=== PATIENT | female | born 1955 | race Caucasian/White ===

== ENCOUNTER 2017-01-14 02:50 | Inpatient (IN) ==
[2017-01-07 12:53] LABS: MANUAL DIFF NEEDED? NO; URINE MICRO REVIEW NEEDED? NO; URINE SOURCE CLEAN CATCH
--- NOTE | 2017-01-07 12:54 | EKG Report ---
Test Performed on : 01/07/2017 12:26:11 PM Test Reason : PAT Blood Pressure : / mmHG Vent. Rate : 078 BPM Atrial Rate : 078 BPM P-R Int : 208 ms QRS Dur : 080 ms QT Int : 372 ms P-R-T Axes : 064 105 057 degrees QTc Int : 424 ms Normal sinus rhythm. with 1st degree AV block. Rightward axis Borderline ECG When compared with ECG of 21-MAR-2010 08:36, No significant change was found Confirmed by Jonathan Roman MD ([id number]) on 01/07/2017 3:58:44 PM
[2017-01-07 13:06] LABS: BILIRUBIN URINE NEGATIVE (NEGATIVE); BLOOD URINE NEGATIVE (NEGATIVE); COLOR YELLOW; GLUCOSE URINE NEGATIVE (NEGATIVE); LEUKOCYTES URINE MODERATE (NEGATIVE); NITRITE URINE NEGATIVE (NEGATIVE); PH URINE 5.5; PROTEIN URINE NEGATIVE (NEGATIVE); SP GRAVITY URINE 1.009; TURBIDITY URINE CLEAR (CLEAR); UROBILINOGEN URINE NORMAL (NORMAL)
[2017-01-07 13:07] LABS: UR EPITHELIAL CELLS <10 /HPF (<10); URINE BACTERIA NEGATIVE /HPF; URINE RBC <10 /HPF (<10)
[2017-01-07 13:17] LABS: BASO% 0.3 % (0.0-0.8); EOS# 0.13 X1000 (0.0-0.7); EOS% 1.9 % (0.0-10.0); HEMATOCRIT 41.4 % (37.0-47.0); HEMOGLOBIN 13.6 g/dL (12.0-16.0); IMM GRAN# 0.02 X1000 (0.0-0.04); IMM GRAN% 0.3 % (0.0-0.5); LYMPH# 1.47 X1000 (1.2-3.4); LYMPH% 21.4 % (20.5-51.1); MCHC 32.9 g/dL (33-37); MCV 97.4 FL (81-99); MONO# 0.45 X1000 (0.11-0.59); MONO% 6.5 % (1.7-9.3); NEUT% 69.6 % (42.2-75.2); PLT 229 X1000 (130-400); RBC 4.25 XMIL (4.2-5.4)
[2017-01-07 13:28] LABS: INR 0.94; PROTIME 9.8 Seconds (9.2-11.7); PTT 24.5 Seconds (22.0-36.0)
[2017-01-07 13:37] LABS: AGAP 14; BUN 13 mg/dL (8-22); CALCIUM 8.9 mg/dL (8.8-10.2); CHLORIDE 100 mmol/L (98-107); COSMO 277; POTASSIUM 4.2 mmol/L (3.5-5.1); SODIUM 138 mmol/L (136-145); TCO2 24 mmol/L (25-35)
[2017-01-14] MEDS ORDERED: LYRICA ONE (05:43)
[2017-01-14] MEDS ORDERED: PEPCID ONE (05:43)
[2017-01-14] MEDS ORDERED: REGLAN ONE (05:43)
[2017-01-14] MEDS ORDERED: COLACE ONE (05:43)
[2017-01-14] MEDS ORDERED: KEFZOL 2 GM/D5W 2 GM/50 ML IVPB ONE (05:44)
[2017-01-14] MEDS ORDERED: LR 1,000 ML ONE ×2 (05:44→10:30)
[2017-01-14] MEDS ORDERED: CELEBREX ONE (05:44)
[2017-01-14] MEDS ORDERED: VANCOMYCIN ONE (06:33)
[2017-01-14] MEDS ORDERED: CYKLOKAPRON 1,000 MG/NS 1,000 MG/100 ML IVPB ONE ×2 (06:33→06:36)
[2017-01-14] MEDS ORDERED: MARCAINE 0.25% PF/EPI 1:200,000 ONE (06:33)
[2017-01-14] MEDS ORDERED: SODIUM CHLORIDE 0.9% ONE (06:33)
[2017-01-14] MEDS ORDERED: TORADOL ONE (06:33)
[2017-01-14] MEDS ORDERED: EXPAREL 1.3% ONE (06:35)
[2017-01-14] MEDS ORDERED: NEOSPORIN G.U. IRRIGANT ONE (06:35)
[2017-01-14] MEDS ORDERED: MOBIC PO PRN (06:53)
[2017-01-14 08:07] LABS: URINE MICRO REVIEW NEEDED? NO; URINE SOURCE CATH
[2017-01-14 08:09] LABS: BILIRUBIN URINE NEGATIVE (NEGATIVE); BLOOD URINE NEGATIVE (NEGATIVE); COLOR YELLOW; GLUCOSE URINE NEGATIVE (NEGATIVE); LEUKOCYTES URINE MODERATE (NEGATIVE); NITRITE URINE NEGATIVE (NEGATIVE); PH URINE 5.5; PROTEIN URINE NEGATIVE (NEGATIVE); SP GRAVITY URINE 1.007; TURBIDITY URINE CLEAR (CLEAR); UROBILINOGEN URINE NORMAL (NORMAL)
[2017-01-14 08:11] LABS: UR EPITHELIAL CELLS <10 /HPF (<10); URINE BACTERIA NEGATIVE /HPF; URINE RBC <10 /HPF (<10)
[2017-01-14] MEDS: MORPHINE ONE ×2 (09:55→10:10)
[2017-01-14] MEDS ORDERED: VERSED ONE (09:56)
[2017-01-14] MEDS ORDERED: FENTANYL ONE (09:56)
[2017-01-14] MEDS ORDERED: DIPRIVAN 1% 500 MG/50 ML BOTTLE ONE (09:57)
[2017-01-14] MEDS ORDERED: DIPRIVAN 1% ONE (09:57)
[2017-01-14] MEDS ORDERED: NS 1,000 ML ONE (10:00)
[2017-01-14] MEDS ORDERED: ZOFRAN PO PRN (10:12)
[2017-01-14] MEDS ORDERED: MORPHINE IV PRN (10:12)
[2017-01-14] MEDS ORDERED: MILK OF MAGNESIA PO PRN (10:13)
[2017-01-14] MEDS ORDERED: DECADRON ONE (10:30)
[2017-01-14] MEDS ORDERED: MORPHINE ONE (10:30)
[2017-01-14] MEDS ORDERED: EPHEDRINE ONE (10:30)
[2017-01-14] MEDS ORDERED: ZOFRAN ONE (10:30)
--- NOTE | 2017-01-14 10:48 | Diag Imaging Result Doc PS360 ---
EXAM: KNEE 1-2 VIEWS-LEFT HISTORY: post op TECHNIQUE: AP and lateral portable COMMENT: There is a total knee arthroplasty. There appears to be appropriate alignment. IMPRESSION: Postsurgical changes Electronically signed by Jamal Sandy 01/14/2017 10:45 AM
[2017-01-14] MEDS: PRILOSEC PO SCH (11:26)
[2017-01-14] MEDS: NEURONTIN PO SCH ×3 (11:26→21:29)
[2017-01-14] MEDS: COLACE PO SCH (11:42)
[2017-01-14] MEDS: NS 1,000 ML IV SCH ×2 (11:42→22:56)
[2017-01-14] MEDS: KEFZOL 2 GM/D5W 2 GM/50 ML IVPB IV SCH ×2 (14:19→22:55)
[2017-01-14] MEDS: AVAPRO PO SCH (14:22)
[2017-01-14] MEDS: OXY IR PO PRN ×2 (16:46→21:28)
[2017-01-14] MEDS: PERIDEX MT SCH (21:28)
[2017-01-15] MEDS: OXY IR PO PRN ×2 (01:54→06:31)
[2017-01-15] MEDS ORDERED: TYLENOL PO PRN ×2 (02:00)
[2017-01-15 05:33] LABS: HEMATOCRIT 31.2 % (37.0-47.0); HEMOGLOBIN 9.9 g/dL (12.0-16.0)
[2017-01-15 06:09] LABS: AGAP 10; BUN 14 mg/dL (8-22); CHLORIDE 104 mmol/L (98-107); COSMO 280; POTASSIUM 4.3 mmol/L (3.5-5.1); SODIUM 140 mmol/L (136-145); TCO2 26 mmol/L (25-35)
[2017-01-15] MEDS: XARELTO PO SCH (06:31)
[2017-01-15] MEDS: PRILOSEC PO SCH (06:31)
--- NOTE | 2017-01-15 06:56 | PROGRESS NOTE ---
DATE: 01/15/2017 SUBJECTIVE: The patient is a pleasant 61-year-old female who is one day status post left total knee arthroplasty. She is currently resting comfortably. She is however having some side effects from the OxyIR. She states she is feeling somewhat nervous with this. OBJECTIVE: On physical exam of the left lower extremity, her wound looks good. There are no signs or symptoms of infection. Calf is soft. She has active dorsiflexion and plantar flexion. Her hemoglobin is 9.9 and hematocrit is 31.2. IMPRESSION: Postop day #1 status post left total knee arthroplasty. PLAN: At this point, discussed treatment options with the patient. At this time, we will Hep- Lock her IV and discontinue her Lewis. We will discontinue her drain. We will continue with increased mobilization with physical therapy and consult Ch[facility] Mortiser Operator for discharge planning. cc: Edmund Henley MD
[2017-01-15] MEDS: TYLENOL PO SCH ×3 (08:28→20:57)
[2017-01-15] MEDS: COLACE PO SCH (08:29)
[2017-01-15] MEDS: NEURONTIN PO SCH ×3 (08:29→20:58)
[2017-01-15] MEDS: PERIDEX MT SCH ×2 (08:29→20:58)
[2017-01-15] MEDS: AVAPRO PO SCH (11:06)
[2017-01-15] MEDS: DEMEROL PO PRN ×3 (13:47→21:51)
[2017-01-16] MEDS: TYLENOL PO SCH ×3 (01:28→14:03)
[2017-01-16] MEDS: DEMEROL PO PRN ×4 (01:30→14:04)
[2017-01-16] MEDS: PRILOSEC PO SCH ×2 (05:41→07:21)
[2017-01-16] MEDS: XARELTO PO SCH (05:41)
[2017-01-16 06:56] LABS: HEMATOCRIT 30.2 % (37.0-47.0); HEMOGLOBIN 9.5 g/dL (12.0-16.0)
--- NOTE | 2017-01-16 07:25 | DISCHARGE SUMMARY ---
ADMISSION DATE: 01/14/2017 DISCHARGE DATE: 01/16/2017 ADMITTING DIAGNOSIS: Degenerative osteoarthritis, left knee. DISCHARGE DIAGNOSIS: Degenerative osteoarthritis, left knee. Status post, left total knee arthroplasty. BRIEF HISTORY: The patient is a 61-year-old female with a chronic history of worsening pain and discomfort of her left knee. Her pain has progressed to affect her activities of daily living. X-rays revealed significant degenerative osteoarthritis. Recommendation that she proceed with left total knee arthroplasty was offered. Details of the surgery including the risks and benefits were explained including risk of anesthesia, , bleeding, infection, failure to relieve pain, postoperative stiffness, nerve injury, blood clots, and other imponderables. All questions were answered, and the patient and family wished to proceed with surgery. HOSPITAL COURSE AND TREATMENT: The patient admitted to the hospital and underwent left total knee arthroplasty. She tolerated the procedure well. She had an uneventful postoperative course. By postop day #2, her hemoglobin and hematocrit were 9.5 and 30.2. Her wound looked good. There were no signs or symptoms of infection, had expected swelling and ecchymosis. Her calf was soft. She has active dorsiflexion and plantar flexion. The patient was slow to mobilize with physical therapy, and it was felt she would benefit from inpatient rehabilitation. She was agreeable to this. DISCHARGE MEDICATIONS: 1. Meperidine 50 mg 1-2 p.o. q.4 hours p.r.n. pain. 2. Xarelto 10 mg p.o. daily for 2 weeks. For remaining medications, see premedication list. DISCHARGE INSTRUCTIONS: 1. The patient will be discharged for inpatient rehabilitation. 2. Consult physical therapy with full weightbearing, left lower extremity, and range of motion and gait training per total knee protocol. 3. Discontinue maikel in 12 days. 4. Follow up in the office upon discharge from rehab. cc: Edmund Henley MD
[2017-01-16] MEDS: NEURONTIN PO SCH ×2 (10:04→14:03)
[2017-01-16] MEDS: PERIDEX MT SCH (10:04)
[2017-01-16] MEDS: COLACE PO SCH (10:04)
[2017-01-16] MEDS: AVAPRO PO SCH (10:09)
[2017-01-16 11:33] VITALS: BP 142/70
--- NOTE | 2017-01-16 13:08 | PROGRESS NOTE ---
DATE: 01/16/2017 SUBJECTIVE: Patient is a 61-year-old female who is currently resting comfortably this morning. The patient did have significant pain and discomfort through the day yesterday. OBJECTIVE: On physical exam, her left lower extremity wound looks good. There is no sign of infection. Does have diffuse swelling and expected ecchymosis. Calf is soft. She has active dorsiflexion and plantar flexion. The patient's hemoglobin and hematocrit is pending. IMPRESSION: Postop day #2, status post left total knee arthroplasty. PLAN: At this point, the patient is slow to progress in physical therapy. It is felt she would benefit with inpatient rehabilitation at [facility]. She is currently undergoing evaluation, but if she is approved, we will plan on discharging today. She has tolerated the meperidine. cc: Edmund Henley MD
--- NOTE | 2017-01-26 23:06 | OPERATIVE NOTE ---
PROCEDURE DATE: 01/14/2017 PREOPERATIVE DIAGNOSIS: Degenerative arthritis left knee. POSTOP DIAGNOSIS: Degenerative arthritis left knee. PROCEDURE: Left total knee arthroplasty with a DePuy size 3 Sigma femoral component, a 40 mm universal metaphyseal sleeve, a 75 x 20 mm universal fluted stem, a size 3 tibial tray with a 45 mm metaphyseal sleeve and a 75 x 14 universal fluted stem and a 12.5 mm tibial insert and a 32 mm round dome patella. SURGEON: Edmund Henley MD 1ST CONTRACT LAW SPECIALIST: Jared Carlisle. 2ND CONTRACT LAW SPECIALIST: Fili Long, medical student. ESTIMATED BLOOD LOSS: 50 mL. TOURNIQUET TIME: 112 minutes at 400 mmHg. COMPLICATIONS: None. INDICATION: Patient was 61-year-old female chronic history of worsening pain and discomfort left knee. X-rays significant degenerative arthritis, recommendation proceed left total knee arthroplasty was offered. Risks of surgery were explained including risk of anesthesia, , bleeding, infection, failure relieve pain, postop stiffness, nerve injury, blood clots and other imponderables. All questions were answered, patient wished to proceed with surgery. DETAILS OF OPERATION: Patient taken to operating room, underwent spinal anesthesia. After adequate anesthesia was obtained patient placed supine on operating table. Left lower extremity was subsequently prepped and draped in usual sterile fashion. Esmarch was used to exsanguinate left lower extremity and tourniquet was inflated to 350 mmHg. A standard anterior incision made with skin knife, medial and lateral skin envelope were developed. Standard medial parapatellar arthrotomy was then performed. The patella fat pad was excised. Retractors then placed. Starting reamer was then passed. The distal femoral cutting block was pinned in position. Distal femoral cut was then performed. After this had been performed attention then turned to the proximal tibia where it a provisional resection was performed, medial, lateral meniscus excised along with ACL and PCL. Using a starting reamer and intramedullary canal sequential reaming was then conducted up to size 14. The metaphysis was reamed as well. Sequential broaching was then conducted up to a size 45 metaphyseal sleeve. It appeared to have good fit. A size 3 tibial tray appeared correct size. The size 3 with 45 metaphyseal trial and universal fluted stem was then placed and had good fit. Attention then turned the distal femur where a spacer block was placed, intramedullary reaming was conducted up to size 20 mm. Broaching was then conducted of the metaphysis and trial femoral cutting block was placed in position with the knee held in approximately in 90 degrees of flexion and the rotation was set and was drilled and anterior, posterior chamfer cuts were then made. The box cutting guide was then placed. A size 3 trial femoral component with the 70, 40 mm universal stem with 75 x 20 trial was then placed in position and tibial insert was then placed and had good soft tissue balancing. The patella was everted resected standard fashion and 32 appeared to be correct size. Corresponding holes were drilled and the trial patella component was then placed. Had some lateral translation therefore lateral release was performed. After this had been performed the trial components were then deemed to be correct size, they were then placed on the back table. The trial components were then assembled on back table while more copious irrigation performed with antibiotic pulsatile lavage on the knee and vancomycin was mixed cement on back table. Sequential cementing was then performed with tibial component and that was impacted position with cement placed on superior aspect of the bone. Good fit was obtained. Excess cement was removed with a [place]. The femoral construct was then packed in position, had good fit and cement was placed in standard fashion, excess cement was removed with a [place]. After this had been performed trial tibial insert was placed and full extension and axial loading was maintained while cement cured. Patella cemented standard fashion and patella clamp was placed, Exparel was placed in deep soft tissue as well as subcutaneous tissue. After cement had cured the 12.5 mm rotating platform tibial insert appeared be correct size , trial insert was removed. Exparel was placed in the posterior capsule. Irrigation was then performed once again with antibiotic pulsatile lavage followed by 12.5 mm rotating platform tibial insert. Knee was then carried through range of motion, had good range of motion, good stability and good patellofemoral tracking. A 1/8 Hemovac drain was placed was not sewn in. Copious irrigation then performed once again with antibiotic pulsatile lavage. Number 1 Vicryl used repair arthrotomy followed by 2-0 Vicryl repair the subcutaneous tissue and skin maikel. Adaptic , sterile 4 x 4, Webril, cryo unit and Anibal wrap was applied left lower extremity. Patient tolerated procedure well, no complications, transferred to recovery room in stable condition. cc: MD MARITA Robles
== END 2017-01-16 14:07 ==
LOC: SURHOLD 02:50 → 4N 07:37
PROVIDERS: ADMIT Orthopaedic Surgery Adult Reconstructive Orthopaedic Surgery; ATTEND Orthopaedic Surgery Adult Reconstructive Orthopaedic Surgery